=== PATIENT | male | born 2000 | race Caucasian/White ===

== ENCOUNTER 2022-06-22 02:38 | Emergency (ER) | payer OTHER ==
[~2022-06-22] VITALS: Ht 170.2 cm; Wt 63.6 kg
[2022-06-22 02:44] VITALS: BP 136/65; TEMP 98
[2022-06-22] MEDS ORDERED: CEPHALEXIN500 M1 PO (03:45)
[2022-06-22 03:53] VITALS: PULSE 84
== END 2022-06-22 03:59 | disposition home or self-care (01) ==
LOC: COL.ER 02:38
DX: S61.212A Laceration without foreign body of right middle finger without damage to nail, initial encounter (principal); W26.8XXA Contact with other sharp object(s), not elsewhere classified, initial encounter; W19.XXXA Unspecified fall, initial encounter; Y92.009 Unspecified place in unspecified non-institutional (private) residence as the place of occurrence of the external cause